=== PATIENT | female | born 1965 | race Hispanic/Latino ===

== ENCOUNTER → 2020-05-12 | Day surgery (SDC) | payer BC ==
[~2020-05-12] MED LIST: BUPIVACAINE HCL 0.5% INJ 30 ML VIAL INJ ONE; CEFAZOLIN SOD 1 GM/NS 50ML 100 ML IV ONE; CEFUROXIME250 MG PO; DEXAMETHASONE SOD PHOS INJ 4 MG/ML VIAL ONE; FENTANYL CITRATE/PF 100MCG/2 ML INJ ONE; KETOROLAC TROMETHAMINE 30 MG/ML VIAL ONE; LIDOCAINE HCL 2% LOCAL INJ 5 ML SDV VIAL INJ ONE; MIDAZOLAM HCL 2 MG/2 ML VIAL ONE; ONDANSETRON HCL INJ 2MG/ML 2ML 2 MG/ML VIAL ONE; PROPOFOL IV EMULSION 10 MG/ML 20 ML VIAL ONE; SEVOFLURANE INHAL SOLN 250 ML PEN BTL ONE; SULFASALAZINE500 M1 PO
[2020-05-12 14:15] VITALS: BP 135/87
--- NOTE | 2020-05-21 10:50 | Operative Report ---
DATE OF PROCEDURE: 05/12/2020 SURGEON: Andrey Machado MD PREOPERATIVE DIAGNOSIS: Right knee medial meniscus tear, right knee degenerative joint disease of the knee. POSTOPERATIVE DIAGNOSIS: Right knee degenerative joint disease of the knee as well as symptomatic medial shelf plica. OPERATION AND PROCEDURES PERFORMED: The patient underwent a right knee examination under anesthesia, right knee arthroscopy, right knee chondroplasty of the lateral tibial plateau of the patella and a right knee plica resection. ANESTHESIA: General endotracheal intubation anesthesia. IV FLUIDS: As per the Anesthesia record. BLOOD LOSS: Minimal. COMPLICATIONS: None. BRIEF DESCRIPTION OF THE PATIENT'S OPERATIVE PROCEDURE: Ms. Ulrich was taken to the operating room and placed in supine position on the operating table. Following induction of general anesthesia as well as endotracheal intubation, the patient's right lower extremity was examined under anesthesia. She was found to have a mild effusion with the knee joint, but otherwise ligamentously stable knee. The patient's lower extremity was prepped and draped in standard surgical fashion. A two-port technique was used to provide this patient arthroscopic evaluation of the knee joint. Examination of suprapatellar pouch, medial and lateral gutters found no evidence of loose bodies. There was, however, evidence of chondromalacia of the patella. There was also enlarged and inflamed medial shelf plica. The scope was advanced to medial compartment. Examination of the medial compartment demonstrated no significant chondromalacia. There was also no evidence of a medial meniscus tear. The meniscus was thoroughly examined and no evidence of meniscus. Full-thickness meniscus injury could be identified. The scope was advanced to the intercondylar notch. The anterior cruciate ligament identified and found to be intact. Scope was advanced to lateral compartment and there was chondromalacia of the lateral tibial plateau. A chondroplasty surface was performed. The scope was then placed in suprapatellar pouch and a chondroplasty of the patella was performed. The plica was also resected at this time. The knee was then deflated with sterile normal saline. The portals sites were closed using 4-0 nylon suture. The portal sites were injected with 0.5% Marcaine with epinephrine. Sterile dressings were applied. The patient was then awakened and taken to the postanesthesia care in stable condition. MD GALE Li/ISAÍAS /[id number]
== END | disposition home or self-care (01) ==
LOC: OR 06:53
PROVIDERS: ATTEND Specialist
DX: M67.51 Plica syndrome, right knee (principal); M22.41 Chondromalacia patellae, right knee; S83.221A Peripheral tear of medial meniscus, current injury, right knee, initial encounter; M17.11 Unilateral primary osteoarthritis, right knee; M06.9 Rheumatoid arthritis, unspecified; X58.XXXA Exposure to other specified factors, initial encounter; Z88.6 Allergy status to analgesic agent; Z01.810 Encounter for preprocedural cardiovascular examination; Z01.812 Encounter for preprocedural laboratory examination; Z11.59 Encounter for screening for other viral diseases; Z68.33 Body mass index [BMI] 33.0-33.9, adult
CPT/HCPCS: 29875; 93005; J0690; J1100; J1885; J2001; J2250; J2405; J2704; J3010; U0002

== ENCOUNTER → 2022-08-26 | Day surgery (SDC) | payer BC ==
[~2022-08-26] MED LIST changes: -BUPIVACAINE HCL 0.5% INJ 30 ML VIAL INJ ONE; -CEFAZOLIN SOD 1 GM/NS 50ML 100 ML IV ONE; -DEXAMETHASONE SOD PHOS INJ 4 MG/ML VIAL ONE; -FENTANYL CITRATE/PF 100MCG/2 ML INJ ONE; +HYOSCYAMINE SULFATE 0.5 MG/ML INJ ONE; -KETOROLAC TROMETHAMINE 30 MG/ML VIAL ONE; +PROTONIX20 MG PO; -SEVOFLURANE INHAL SOLN 250 ML PEN BTL ONE; +VITAMIN B-121000 MCG PO; +VITAMIN B6100 MG/2.5 PO; +VITAMIN C1000 MG PO
[2022-08-26 14:30] VITALS: BP 120/86
== END | disposition home or self-care (01) ==
LOC: OR 09:05
PROVIDERS: ATTEND Internal Medicine Gastroenterology
DX: Z12.11 Encounter for screening for malignant neoplasm of colon (principal); D12.2 Benign neoplasm of ascending colon; D12.4 Benign neoplasm of descending colon; K57.30 Diverticulosis of large intestine without perforation or abscess without bleeding; K64.8 Other hemorrhoids; K21.9 Gastro-esophageal reflux disease without esophagitis; Z88.6 Allergy status to analgesic agent; Z01.810 Encounter for preprocedural cardiovascular examination
CPT/HCPCS: 45380; 45385; 93005; J1980; J2001; J2250; J2405; J2704; 45378

== ENCOUNTER 2024-05-06 19:54 | Inpatient (IN) | payer BC ==
[~2024-05-06] VITALS: Ht 154.9 cm; Wt 84.4 kg
[~2024-05-06 19:54] MED LIST changes: +ESTRACE1 MG PO; -HYOSCYAMINE SULFATE 0.5 MG/ML INJ ONE; -LIDOCAINE HCL 2% LOCAL INJ 5 ML SDV VIAL INJ ONE; -MIDAZOLAM HCL 2 MG/2 ML VIAL ONE; -ONDANSETRON HCL INJ 2MG/ML 2ML 2 MG/ML VIAL ONE; -PROPOFOL IV EMULSION 10 MG/ML 20 ML VIAL ONE
[2024-05-06 20:05] VITALS: TEMP 98.7
[2024-05-06 20:43] LABS: BASOPHILS % 0.7 % (0.0-1.0); EOSINOPHILS # (AUTO) 0.1 (0.0-0.4); EOSINOPHILS % 1.7 % (0.0-6.0); HEMATOCRIT 38.8 % (34.2-44.1); HEMOGLOBIN 12.4 g/dL (12.0-16.0); LYMPHOCYTES # (AUTO) 1.6 (1.0-3.2); MEAN CORPUSCULAR VOLUME 93.7 fL (81-99); MONOCYTES # (AUTO) 0.3 (0.2-0.8); MONOCYTES % 5.9 % (4.4-11.3); NEUTROPHILS # (AUTO) 2.3 (2.1-6.9); NEUTROPHILS % 54.5 % (38.7-80.0); PLATELET COUNT 135 x10e3/uL (140-360); RED BLOOD COUNT 4.14 x10e6/uL (3.6-5.1); RED CELL DISTRIBUTION WIDTH 13.3 % (11.7-14.4); WHITE BLOOD COUNT 4.24 x10e3/uL (4.8-10.8)
[2024-05-06 20:50] LABS: INR 0.94
[2024-05-06 20:51] LABS: PARTIAL THROMBOPLASTIN TIME 25.5 seconds (23.8-35.5)
[2024-05-06] MEDS: ONDANSETRON HCL INJ 2MG/ML 2ML 2 MG/ML VIAL IV STA (20:59)
[2024-05-06] MEDS: KETOROLAC TROMETHAMINE 30 MG/ML VIAL IV STA (20:59)
[2024-05-06 21:00] VITALS: PULSE 75; RESP 17
[2024-05-06] MEDS: SODIUM CHLORIDE 0.9% 1000ML 1,000 ML IV SCH (21:00)
[2024-05-06 21:01] LABS: ALBUMIN 3.2 g/dL (3.5-5.0); ALBUMIN/GLOBULIN RATIO 1.1 (0.8-2.0); ANION GAP 12.1 mmol/L (8-16); BILIRUBIN,TOTAL 0.3 mg/dL (0.2-1.2); CALCIUM 8.7 mg/dL (8.4-10.2); CREATININE, SERUM 0.9 mg/dL (0.57-1.11); POTASSIUM 4.1 mmol/L (3.5-5.1); TOTAL PROTEIN 6.2 g/dL (6.5-8.1)
[2024-05-06 21:55] VITALS: BP 132/87; PULSE 77; RESP 18; TEMP 98; O2SAT 96
[2024-05-06 22:40] LABS: CLARITY,URINE SL CLOUDY (CLEAR); COLOR,URINE YELLOW (YELLOW); LEUKOCYTE ESTERASE ,URINE NEGATIVE (NEGATIVE); NITRITE,URINE NEGATIVE (NEGATIVE); PH,URINE 5.5 (5 - 7); PROTEIN,URINE DIPSTICK NEGATIVE (NEGATIVE)
[2024-05-06 22:41] LABS: BILIRUBIN,URINE NEGATIVE (NEGATIVE); GLUCOSE, URINE NEGATIVE (NEGATIVE); KETONES,URINE NEGATIVE (NEGATIVE); URINE UROBILINOGEN 0.2 mg/dL (0.2 - 1)
[2024-05-06 22:43] VITALS: BP 132/87; PULSE 77; RESP 18; TEMP 98; O2SAT 96
[2024-05-06 22:56] VITALS: BP 132/87; PULSE 77; RESP 18; TEMP 98; O2SAT 96
[2024-05-06] MEDS ORDERED: HYDRALAZINE HCL 20 MG/ML VIAL IV PRN (23:00)
[2024-05-06 23:01] LABS: BACTERIA,URINE MANY /HPF; EPITHELIAL CELLS,URINE MANY /LPF; RBC,URINE 0-5 /HPF (0-5); WBC,URINE (MAN) 0-5 /HPF (0-5)
[2024-05-07] VITALS (9 sets, daily range): BP systolic 130–143; BP diastolic 66–79; PULSE 61–67; RESP 16–21; TEMP 97.6–97.9; O2SAT 95–100
[2024-05-07] MEDS: KETOROLAC TROMETHAMINE 30 MG/ML VIAL IV PRN (05:26)
[2024-05-07] MEDS ORDERED: FENTANYL CITRATE/PF 100MCG/2 ML INJ ONE (11:19)
[2024-05-07] MEDS ORDERED: DEXAMETHASONE SOD PHOS INJ 4 MG/ML SDV ONE (11:56)
[2024-05-07] MEDS ORDERED: ACETAMINOPHEN 1000 MG/100 ML IV ONE (11:56)
[2024-05-07] MEDS ORDERED: PROPOFOL IV EMULSION 10 MG/ML 20 ML VIAL ONE (11:56)
[2024-05-07] MEDS ORDERED: ONDANSETRON HCL INJ 2MG/ML 2ML 2 MG/ML VIAL ONE (11:56)
[2024-05-07] MEDS ORDERED: LIDOCAINE HCL 2% LOCAL INJ 5 ML SDV VIAL INJ ONE (11:56)
[2024-05-07] MEDS ORDERED: SEVOFLURANE INHAL SOLN 250 ML PEN BTL ONE (11:56)
[2024-05-07] MEDS ORDERED: IOPAMIDOL 610MG/1ML 300 MG/ML VIAL IV ONE (14:13)
[2024-05-07] MEDS: PHENAZOPYRIDINE HCL 100 MG TAB PO PRN (15:26)
[2024-05-07] MEDS: TRAMADOL HCL 50 MG TAB PO PRN (15:26)
[2024-05-07] MEDS: Morphine 4mg INJECTION 4 MG/ML INJ IV PRN (15:46)
[2024-05-07] MEDS: ONDANSETRON HCL INJ 2MG/ML 2ML 2 MG/ML VIAL IV PRN (15:46)
[2024-05-08] VITALS (8 sets, daily range): BP systolic 130–152; BP diastolic 64–80; PULSE 68–80; RESP 17–21; TEMP 97.8–99.4; O2SAT 94–97
[2024-05-08 05:27] LABS: BASOPHILS % 0.2 % (0.0-1.0); HEMATOCRIT 37.9 % (34.2-44.1); HEMOGLOBIN 12.6 g/dL (12.0-16.0); LYMPHOCYTES # (AUTO) 0.9 (1.0-3.2); LYMPHOCYTES % 15.1 % (18.0-39.1); MEAN CORPUSCULAR HEMOGLOBIN 30.2 pg (28-32); MEAN CORPUSCULAR HGB CONC 33.2 g/dL (31-35); MEAN CORPUSCULAR VOLUME 90.9 fL (81-99); MONOCYTES # (AUTO) 0.2 (0.2-0.8); NEUTROPHILS # (AUTO) 4.6 (2.1-6.9); PLATELET COUNT 157 x10e3/uL (140-360); RED BLOOD COUNT 4.17 x10e6/uL (3.6-5.1); RED CELL DISTRIBUTION WIDTH 12.8 % (11.7-14.4); WHITE BLOOD COUNT 5.63 x10e3/uL (4.8-10.8)
[2024-05-08 05:51] LABS: ANION GAP 12.3 mmol/L (8-16); CALCIUM 8.1 mg/dL (8.4-10.2); CREATININE, SERUM 0.81 mg/dL (0.57-1.11); POTASSIUM 4.3 mmol/L (3.5-5.1)
[2024-05-08 06:16] LABS: URIC ACID 4.9 mg/dL (2.6-8.0)
[2024-05-08] MEDS ORDERED: ACETAMINOPHEN 1000 MG/100 ML IV PRN (11:30)
[2024-05-08] MEDS: SOLIFENACIN SUCCINATE 5 MG TAB PO SCH (12:57)
[2024-05-09] VITALS: BP 138/75; PULSE 65; RESP 18; TEMP 98; O2SAT 98
[2024-05-09 04:00] VITALS: BP 150/88; PULSE 65; RESP 17; TEMP 98; O2SAT 99
[2024-05-09 08:00] VITALS: BP 148/72; PULSE 58; RESP 18; TEMP 98.1; O2SAT 99
[2024-05-09 09:02] VITALS: BP 148/72; PULSE 58; RESP 18; TEMP 98.1; O2SAT 99
[2024-05-09 12:00] VITALS: BP 148/83; PULSE 63; RESP 18; TEMP 98.2; O2SAT 98
== END 2024-05-09 16:06 | disposition home or self-care (01) | DRG 661 ==
LOC: ER 20:05 → ERHOLD 20:33 → MED/SURG 22:12
PROVIDERS: ADMIT Internal Medicine; ATTEND Internal Medicine
PROC: 0UJD8ZZ Inspection of Uterus and Cervix, Via Natural or Artificial Opening Endoscopic (ICD-10-PCS; 2024-05-07)
PROC: BT141ZZ Fluoroscopy of Kidneys, Ureters and Bladder using Low Osmolar Contrast (ICD-10-PCS; 2024-05-07)
PROC: 0T768DZ Dilation of Right Ureter with Intraluminal Device, Via Natural or Artificial Opening Endoscopic (ICD-10-PCS; principal; 2024-05-07 14:15)
DX: N13.6 Pyonephrosis (principal); N23 Unspecified renal colic; E66.9 Obesity, unspecified; I10 Essential (primary) hypertension; R31.0 Gross hematuria; E78.5 Hyperlipidemia, unspecified; N81.10 Cystocele, unspecified; N81.6 Rectocele; N95.2 Postmenopausal atrophic vaginitis; Z79.890 Hormone replacement therapy; Z90.49 Acquired absence of other specified parts of digestive tract; Z90.710 Acquired absence of both cervix and uterus; Z88.5 Allergy status to narcotic agent
CPT/HCPCS: 36415; 74420; 80048; 80053; 81001; 83970; 84550; 85025; 85610; 85730; 87086; 94799; 99284; C1769; C2617; J0696; J1100; J1885; J2003; J2270; J2405; J2470; J7030

== ENCOUNTER 2024-06-22 08:15 | Inpatient (IN) | payer BC, OTHER ==
[2024-06-22] VITALS (7 sets, daily range): BP systolic 147–161; BP diastolic 76–93; PULSE 82–88; RESP 16–18; TEMP 98.2–98.6; O2SAT 98–99
[~2024-06-22] VITALS: Ht 154.9 cm; Wt 84.4 kg
[2024-06-22 09:09] LABS: BASOPHILS # (AUTO) 0.1 (0.0-0.1); EOSINOPHILS # (AUTO) 0.1 (0.0-0.4); EOSINOPHILS % 1.2 % (0.0-6.0); HEMATOCRIT 35.6 % (34.2-44.1); HEMOGLOBIN 11.9 g/dL (12.0-16.0); LYMPHOCYTES # (AUTO) 1.5 (1.0-3.2); LYMPHOCYTES % 30.6 % (18.0-39.1); MEAN CORPUSCULAR HEMOGLOBIN 29.7 pg (28-32); MEAN CORPUSCULAR HGB CONC 33.4 g/dL (31-35); MEAN CORPUSCULAR VOLUME 88.8 fL (81-99); MONOCYTES # (AUTO) 0.2 (0.2-0.8); MONOCYTES % 3.6 % (4.4-11.3); NEUTROPHILS # (AUTO) 3.1 (2.1-6.9); PLATELET COUNT 193 x10e3/uL (140-360); RED BLOOD COUNT 4.01 x10e6/uL (3.6-5.1); RED CELL DISTRIBUTION WIDTH 13.2 % (11.7-14.4); WHITE BLOOD COUNT 4.94 x10e3/uL (4.8-10.8)
[2024-06-22 09:14] LABS: INR 0.96; PROTHROMBIN TIME 13.4 seconds (11.9-14.5)
[2024-06-22 09:15] LABS: PARTIAL THROMBOPLASTIN TIME 29.8 seconds (23.8-35.5)
[2024-06-22] MEDS: LACTATED RINGER'S 1,000 ML INJ ONE (09:16)
[2024-06-22] MEDS: ONDANSETRON HCL INJ 2MG/ML 2ML 2 MG/ML VIAL IV STA (09:16)
[2024-06-22] MEDS: Morphine 4mg INJECTION 4 MG/ML INJ IV STA (09:17)
[2024-06-22 09:20] LABS: BILIRUBIN,URINE NEGATIVE (NEGATIVE); CLARITY,URINE SL CLOUDY (CLEAR); COLOR,URINE YELLOW (YELLOW); GLUCOSE, URINE NEGATIVE (NEGATIVE); KETONES,URINE NEGATIVE (NEGATIVE); LEUKOCYTE ESTERASE ,URINE SMALL (NEGATIVE); NITRITE,URINE NEGATIVE (NEGATIVE); PH,URINE 6 (5 - 7); PROTEIN,URINE DIPSTICK >=300 (NEGATIVE); URINE UROBILINOGEN 0.2 mg/dL (0.2 - 1)
[2024-06-22 09:23] LABS: ALBUMIN 3.1 g/dL (3.5-5.0); ALBUMIN/GLOBULIN RATIO 0.6 (0.8-2.0); ANION GAP 17.1 mmol/L (8-16); BILIRUBIN,TOTAL 0.6 mg/dL (0.2-1.2); CALCIUM 9.7 mg/dL (8.4-10.2); CREATININE, SERUM 2.02 mg/dL (0.57-1.11); POTASSIUM 4.1 mmol/L (3.5-5.1); TOTAL PROTEIN 8.1 g/dL (6.5-8.1)
[2024-06-22 09:30] LABS: WBC,URINE (MAN) 21-50 /HPF (0-5)
[2024-06-22 09:31] LABS: BACTERIA,URINE MODERATE /HPF; EPITHELIAL CELLS,URINE FEW /LPF
[2024-06-22] MEDS ORDERED: Morphine 4mg INJECTION 4 MG/ML INJ IV PRN ×2 (10:45→21:45)
[2024-06-22] MEDS: SODIUM CHLORIDE 0.9% 1000ML 1,000 ML IV SCH (10:57)
[2024-06-22] MEDS: HYDROMORPHONE 1MG/1ML INJ IV PRN (11:13)
[2024-06-22] MEDS: Vancomycin IV 1 GM in SODIUM CHLORIDE 0.9% 250ML 250 ML IV ONE (11:14)
[2024-06-22] MEDS: ONDANSETRON HCL INJ 2MG/ML 2ML 2 MG/ML VIAL IV PRN (12:47)
[2024-06-22] MEDS ORDERED: LISINOPRIL10 MG PO (16:20)
[2024-06-22] MEDS: TRAMADOL HCL 50 MG TAB PO PRN (22:06)
[2024-06-23] VITALS (7 sets, daily range): BP systolic 145–165; BP diastolic 81–96; PULSE 78–94; RESP 17–18; TEMP 97.9–98.6; O2SAT 96–98
[2024-06-23 05:23] LABS: BASOPHILS % 0.6 % (0.0-1.0); EOSINOPHILS % 0.8 % (0.0-6.0); HEMATOCRIT 32.6 % (34.2-44.1); HEMOGLOBIN 10.7 g/dL (12.0-16.0); LYMPHOCYTES # (AUTO) 1.4 (1.0-3.2); LYMPHOCYTES % 29.6 % (18.0-39.1); MEAN CORPUSCULAR HEMOGLOBIN 29.7 pg (28-32); MEAN CORPUSCULAR HGB CONC 32.8 g/dL (31-35); MEAN CORPUSCULAR VOLUME 90.6 fL (81-99); MONOCYTES # (AUTO) 0.2 (0.2-0.8); MONOCYTES % 4.3 % (4.4-11.3); NEUTROPHILS # (AUTO) 3.1 (2.1-6.9); NEUTROPHILS % 64.5 % (38.7-80.0); PLATELET COUNT 165 x10e3/uL (140-360); RED CELL DISTRIBUTION WIDTH 13.3 % (11.7-14.4); WHITE BLOOD COUNT 4.83 x10e3/uL (4.8-10.8)
[2024-06-23 05:57] LABS: ALBUMIN 2.7 g/dL (3.5-5.0); ALBUMIN/GLOBULIN RATIO 0.6 (0.8-2.0); ANION GAP 14.8 mmol/L (8-16); BILIRUBIN,TOTAL 0.5 mg/dL (0.2-1.2); CALCIUM 8.9 mg/dL (8.4-10.2); CREATININE, SERUM 1.57 mg/dL (0.57-1.11); POTASSIUM 3.8 mmol/L (3.5-5.1)
[2024-06-23] MEDS ORDERED: FENTANYL CITRATE/PF 100MCG/2 ML INJ ONE (09:05)
[2024-06-23] MEDS ORDERED: PROPOFOL IV EMULSION 10 MG/ML 20 ML VIAL ONE (09:05)
[2024-06-23] MEDS ORDERED: MIDAZOLAM HCL 2 MG/2 ML VIAL ONE (09:05)
[2024-06-23] MEDS ORDERED: LIDOCAINE HCL 2% LOCAL INJ 5 ML SDV VIAL INJ ONE (09:05)
[2024-06-23] MEDS ORDERED: ACETAMINOPHEN 1000 MG/100 ML 100 ML IV ONE (09:05)
[2024-06-23] MEDS ORDERED: FAMOTIDINE 20 MG/2 ML VIAL IV ONE (09:06)
[2024-06-23] MEDS: MEROPENEM 1 GM in SODIUM CHLORIDE 0.9% 100 ML IV ONE (09:21)
[2024-06-23] MEDS: GENTAMICIN 80MG/NS 100 ML 200 ML IV ONE (09:41)
[2024-06-23] MEDS ORDERED: GENTAMICIN 80MG/NS 100 ML 200 ML IV ONE (10:00)
[2024-06-23] MEDS ORDERED: ONDANSETRON HCL INJ 2MG/ML 2ML 2 MG/ML VIAL ONE (10:01)
[2024-06-23] MEDS ORDERED: DEXAMETHASONE SOD PHOS INJ 4 MG/ML SDV ONE (10:01)
[2024-06-23] MEDS ORDERED: GENTAMICIN IV ONE (11:00)
[2024-06-23] MEDS ORDERED: [UNRECOGNIZED DRUG - OTHER] IV ONE (11:00)
[2024-06-23] MEDS: DOCUSATE SODIUM 100 MG CAP PO SCH (20:12)
[2024-06-24 03:32] VITALS: BP 143/85; PULSE 63; RESP 18; TEMP 98.3; O2SAT 98
[2024-06-24 08:17] VITALS: BP 168/90; PULSE 62; RESP 18; TEMP 97.9; O2SAT 100
[2024-06-24 08:40] VITALS: BP 168/90; PULSE 62; RESP 18; TEMP 97.9; O2SAT 100
[2024-06-24] MEDS: ESTRADIOL 1 MG TAB PO SCH (10:57)
[2024-06-24] MEDS: PANTOPRAZOLE SOD 40 MG TABEC PO SCH (10:57)
[2024-06-24 12:07] VITALS: BP 151/95; PULSE 72; RESP 18; TEMP 97.7; O2SAT 100
[2024-06-24 14:23] LABS: BASOPHILS % 0.4 % (0.0-1.0); EOSINOPHILS # (AUTO) 0.1 (0.0-0.4); EOSINOPHILS % 0.6 % (0.0-6.0); HEMATOCRIT 35.5 % (34.2-44.1); HEMOGLOBIN 11.6 g/dL (12.0-16.0); LYMPHOCYTES # (AUTO) 1.3 (1.0-3.2); LYMPHOCYTES % 15.4 % (18.0-39.1); MEAN CORPUSCULAR HEMOGLOBIN 30.1 pg (28-32); MEAN CORPUSCULAR HGB CONC 32.7 g/dL (31-35); MONOCYTES # (AUTO) 0.2 (0.2-0.8); MONOCYTES % 2.6 % (4.4-11.3); NEUTROPHILS # (AUTO) 6.5 (2.1-6.9); NEUTROPHILS % 80.3 % (38.7-80.0); PLATELET COUNT 189 x10e3/uL (140-360); RED BLOOD COUNT 3.86 x10e6/uL (3.6-5.1); WHITE BLOOD COUNT 8.11 x10e3/uL (4.8-10.8)
[2024-06-24 14:40] LABS: ANION GAP 16.3 mmol/L (8-16); CALCIUM 8.9 mg/dL (8.4-10.2); CREATININE, SERUM 1.16 mg/dL (0.57-1.11)
[2024-06-24 14:44] LABS: POTASSIUM 3.3 mmol/L (3.5-5.1)
[2024-06-24 15:06] LABS: MAGNESIUM 1.4 MG/DL (1.3-2.1); PHOSPHORUS 2.5 MG/DL (2.3-4.7)
[2024-06-24] MEDS: MAGNESIUM SULFATE 2GM/50ML 50 ML IV ONE (16:26)
[2024-06-24] MEDS: AMLODIPINE BESYLATE 5 MG TAB PO ONE (16:26)
[2024-06-24 16:43] VITALS: BP 155/85; PULSE 93; RESP 18; TEMP 98; O2SAT 100
[2024-06-24] MEDS ORDERED: DOCUSATE SODIU100 MG PO (16:56)
[2024-06-24] MEDS ORDERED: ULTRAM 50MG50 MG PO (16:56)
[2024-06-24] MEDS ORDERED: HYDRALAZINE HCL50 MG PO (17:24)
[2024-06-24] MEDS: HYDRALAZINE HCL 20 MG/ML VIAL IV PRN (17:28)
[2024-06-24] MEDS ORDERED: ONDANSETRON HCL 4 MG ORAL DISINTEGRATING TAB PO PRN (18:00)
[2024-06-24] MEDS: MAGNESIUM OXIDE 400 MG TAB PO ONE (18:51)
[2024-06-24] MEDS: POTASSIUM CHLORIDE 10MEQ EA PO ONE (18:51)
[2024-06-24 18:52] VITALS: BP 155/83
== END 2024-06-24 19:30 | disposition home or self-care (01) | DRG 660 ==
LOC: ER 08:23 → ERHOLD 10:40 → MED/SURG 12:40
PROVIDERS: ADMIT Internal Medicine; ATTEND Internal Medicine
PROC: BT1D1ZZ Fluoroscopy of Right Kidney, Ureter and Bladder using Low Osmolar Contrast (ICD-10-PCS; 2024-06-23)
PROC: 0TC08ZZ Extirpation of Matter from Right Kidney, Via Natural or Artificial Opening Endoscopic (ICD-10-PCS; 2024-06-23)
PROC: 0UJH7ZZ Inspection of Vagina and Cul-de-sac, Via Natural or Artificial Opening (ICD-10-PCS; 2024-06-23)
PROC: 0TP98DZ Removal of Intraluminal Device from Ureter, Via Natural or Artificial Opening Endoscopic (ICD-10-PCS; principal; 2024-06-23 09:53)
PROC: 0T768DZ Dilation of Right Ureter with Intraluminal Device, Via Natural or Artificial Opening Endoscopic (ICD-10-PCS; 2024-06-23 09:53)
DX: N13.6 Pyonephrosis (principal); B37.49 Other urogenital candidiasis; N17.9 Acute kidney failure, unspecified; E87.6 Hypokalemia; I10 Essential (primary) hypertension; E78.5 Hyperlipidemia, unspecified; R31.29 Other microscopic hematuria; R33.9 Retention of urine, unspecified; E83.42 Hypomagnesemia; E66.9 Obesity, unspecified; Z68.35 Body mass index [BMI] 35.0-35.9, adult; N81.6 Rectocele; N95.2 Postmenopausal atrophic vaginitis; N81.10 Cystocele, unspecified; Z96.0 Presence of urogenital implants; Z90.49 Acquired absence of other specified parts of digestive tract; Z90.710 Acquired absence of both cervix and uterus; Z88.5 Allergy status to narcotic agent; Z88.6 Allergy status to analgesic agent
CPT/HCPCS: 36415; 51700; 74176; 74420; 80048; 80053; 81001; 83735; 84100; 85025; 85610; 85730; 87086; 88300; 99284; C1758; C1769; C2617; J0360; J0696; J1100; J1171; J1580; J2003; J2185; J2250; J2270; J2405; J2470; J3475; J7030; J7050

== ENCOUNTER → 2024-08-15 | Day surgery (SDC) | payer OTHER ==
[2024-08-07 09:21] LABS: BASOPHILS % 0.8 % (0.0-1.0); EOSINOPHILS # (AUTO) 0.1 (0.0-0.4); EOSINOPHILS % 1.2 % (0.0-6.0); HEMOGLOBIN 11.8 g/dL (12.0-16.0); LYMPHOCYTES # (AUTO) 1.7 (1.0-3.2); LYMPHOCYTES % 32.6 % (18.0-39.1); MEAN CORPUSCULAR HEMOGLOBIN 30.9 pg (28-32); MEAN CORPUSCULAR HGB CONC 31.9 g/dL (31-35); MEAN CORPUSCULAR VOLUME 96.9 fL (81-99); MONOCYTES # (AUTO) 0.2 (0.2-0.8); MONOCYTES % 4.7 % (4.4-11.3); NEUTROPHILS # (AUTO) 3.1 (2.1-6.9); NEUTROPHILS % 60.3 % (38.7-80.0); PLATELET COUNT 155 x10e3/uL (140-360); RED BLOOD COUNT 3.82 x10e6/uL (3.6-5.1); RED CELL DISTRIBUTION WIDTH 13.7 % (11.7-14.4); WHITE BLOOD COUNT 5.16 x10e3/uL (4.8-10.8)
[2024-08-07 09:45] LABS: ANION GAP 12.3 mmol/L (8-16); CREATININE, SERUM 1.58 mg/dL (0.57-1.11); POTASSIUM 4.3 mmol/L (3.5-5.1); URIC ACID 6.6 mg/dL (2.6-8.0)
[~2024-08-15] MED LIST changes: +DEXAMETHASONE SOD PHOS INJ 4 MG/ML SDV ONE; +DOCUSATE SODIU100 MG PO; +FENTANYL CITRATE/PF 100MCG/2 ML INJ ONE; +HYDRALAZINE HCL50 MG PO; +LIDOCAINE HCL 2% LOCAL INJ 5 ML SDV VIAL INJ ONE; +LISINOPRIL10 MG PO; +MIDAZOLAM HCL 2 MG/2 ML VIAL ONE; +ONDANSETRON HCL INJ 2MG/ML 2ML 2 MG/ML VIAL ONE; +PROPOFOL IV EMULSION 10 MG/ML 20 ML VIAL ONE; +SEVOFLURANE INHAL SOLN 250 ML PEN BTL ONE; +ULTRAM 50MG50 MG PO
[2024-08-15] MEDS: LACTATED RINGER'S 1,000 ML ONE (10:22)
[2024-08-15] MEDS: CEFTRIAXONE 1 GM VIAL ONE (10:23)
[2024-08-15] MEDS: GENTAMICIN 80MG/NS 100 ML 200 ML IV ONE (10:24)
[2024-08-15 13:50] VITALS: TEMP 98.4
[2024-08-15] MEDS: PHENAZOPYRIDINE HCL 100 MG TAB ONE (14:22)
[2024-08-15 15:10] VITALS: BP 138/78; PULSE 75; RESP 15; O2SAT 97
[2024-08-15] MEDS: ONDANSETRON HCL 4 MG ORAL DISINTEGRATING TAB ONE (15:15)
== END | disposition home or self-care (01) ==
LOC: OR 09:40
PROVIDERS: ATTEND Urology
DX: Z46.6 Encounter for fitting and adjustment of urinary device (principal); N20.9 Urinary calculus, unspecified; N28.89 Other specified disorders of kidney and ureter; N81.10 Cystocele, unspecified; N81.6 Rectocele; N36.41 Hypermobility of urethra; N95.2 Postmenopausal atrophic vaginitis; E78.5 Hyperlipidemia, unspecified; K21.9 Gastro-esophageal reflux disease without esophagitis; Z88.6 Allergy status to analgesic agent; Z01.810 Encounter for preprocedural cardiovascular examination; Z01.812 Encounter for preprocedural laboratory examination; Z01.818 Encounter for other preprocedural examination
CPT/HCPCS: 36415; 52351; 74018; 74420; 80048; 84550; 85025; 87086; 93005; C1769; J0696; J1100; J1580; J2003; J2250; J2405; J2704; J3010; J7121; Q0162